=== PATIENT | female | born 1965 | race African-American/Black ===

== ENCOUNTER 2018-04-26 21:34 | Emergency (ER) | payer OTHER, SELFPAY ==
[~2018-04-26] VITALS: Ht 167.6 cm; Wt 56.7 kg
[~2018-04-26 21:34] MED LIST: HYDROCHLOROTHIA25 MG ORAL; NKM; ROBITUSSIN LON118 ML PO
[2018-04-26 21:45] VITALS: BP 194/134
[2018-04-26] MEDS ORDERED: PRINIVIL10 MG ORAL (21:48)
[2018-04-26] MEDS ORDERED: METOPROLOL TART25 MG ORAL (21:48)
[2018-04-26] MEDS ORDERED: NORVASC10 MG ORAL (21:48)
--- NOTE | 2018-04-26 22:03 | Emergency Room Report ---
History of Present Illness General Chief Complaint: Nosebleed Source: Patient Present Illness HPI Is a 53-year-old female with a history of high blood pressure. She presents with chief complaint of nosebleed. This been intermittent for last 2 days. So on the right side. She's had bleeding is profuse. She is passing heavy clots. She's been out of her blood pressure medication for last 3 days per she's been working a lot and has not seen her doctor for refill. She is on 3 different medication. Denies any nausea vomiting. Denies any fever or chills. Denies any headache. No chest pain. Allergies: Coded Allergies: No Known Allergies (Unverified , 05/11/13) Patient History Past Medical History: see triage record, old chart reviewed, HTN Past Surgical History: other Pertinent Family History: none Social History: Reports: smoking; Denies: alcohol use, drug use Last Menstrual Period: 2011 Now: No : 3 Para: 3 Immunizations: other Reviewed Nursing Documentation: PMH: Agreed; PSxH: Agreed Nursing Documentation-PMH Past Medical History: No History, Except For Hx Hypertension: Yes Review of Systems Eye: Denies: eye pain, blurred vision ENT: Denies: ear pain, nose congestion, throat swelling Respiratory: Denies: cough, shortness of breath Cardiovascular: Denies: chest pain, palpitations Gastrointestinal: Denies: abdominal pain, diarrhea, nausea, vomiting Musculoskeletal: Denies: back pain, joint pain Skin: Denies: rash Neurological: Denies: headache, numbness Endocrine: Denies: increased thirst, increased urine Hematologic/Lymphatic: Denies: easy bruising All Other Systems: negative except mentioned in HPI Physical Exam Vital Signs Date Time Temp Pulse Resp B/P (MAP) Pulse Ox O2 Delivery O2 Flow Rate FiO2 04/26/18 21:40 98.4 95 16 204/137 97 Room Air blood pressure elevated Sp02 EP Interpretation: reviewed, normal General Appearance: well appearing, no apparent distress, alert Head: normocephalic, atraumatic Eyes: bilateral eye PERRL, bilateral eye EOMI ENT: hearing grossly normal, normal pharynx, other - Nose: No obvious source of bleeding Neck: full range of motion, supple, no meningismus Respiratory: chest non-tender, lungs clear, normal breath sounds Cardiovascular #1: regular rate, rhythm, no murmur Gastrointestinal: normal bowel sounds, non tender, no mass, no organomegaly, no bruit, non-distended Musculoskeletal: back normal, gait/station normal, normal range of motion Psychiatric: mood/affect normal Skin: warm/dry Procedures Additional Procedure Procedure Narrative Procedure: Epistaxis control Indication: Epistaxis Discussion: I place a 5.5 cm Rhino Rocket to the nares. Bleeding controlled. Patient tolerated procedure without any problem. Medical Decision Making Diagnostic Impression: Primary Impression: Epistaxis Additional Impression: Hypertension Qualified Codes: I10 - Essential (primary) hypertension ER Course Patient presents with epistaxis. Initially there was no bleeding but bleeding recur. There was brisk bleeding from the right nares. There was control with Rhino Rocket. Blood pressure improved with medication. We'll discharge home. Lab Results Impression labs unremarkable Last Vital Signs Date Time Temp Pulse Resp B/P (MAP) Pulse Ox O2 Delivery O2 Flow Rate FiO2 04/26/18 21:40 98.4 95 16 204/137 97 Room Air Status: improved Disposition: HOME, SELF-CARE Condition: Stable Scripts Metoprolol Tartrate* (METOPROLOL TARTRATE*) 25 Mg Tablet 25 MG ORAL EVERY 12 HOURS, #60 TAB Prov: Fernandez Red MD 04/27/18 Lisinopril* (LISINOPRIL*) 10 Mg Tablet 10 MG ORAL DAILY, #30 TAB Prov: Fernandez Red MD 04/27/18 Amlodipine Besylate (Norvasc) 10 Mg Tablet 10 MG ORAL DAILY, #30 TAB Prov: Fernandez Red MD 04/27/18 Cephalexin* (KEFLEX*) 500 Mg Capsule 500 MG ORAL TID, #21 CAP Prov: Fernandez Red MD 04/27/18 Patient Instructions: Nosebleed, Aakf-iq-Dopy Additional Instructions: Follow-up with your DrHemant in 4-5 days. You will need a referral to see ENT doctor. Return if symptom worsen. Fernandez Red MD Apr 26, 2018 22:03
[2018-04-26 22:21] LABS: BASOPHILS % (AUTO) 1.1 % (0.0-2.0); EOSINOPHILS % (AUTO) 4.1 % (0.0-3.0); HEMATOCRIT 43.4 % (37.0-47.0); HEMOGLOBIN 14.5 G/DL (12.0-16.0); LYMPHOCYTES % (AUTO) 20.7 % (20.0-45.0); MEAN CORPUSCULAR VOLUME 88 FL (80-99); MONOCYTES % (AUTO) 6.3 % (1.0-10.0); NEUTROPHILS % (AUTO) 67.6 % (45.0-75.0); PLATELET COUNT 248 K/UL (150-450); RED BLOOD COUNT 4.91 M/UL (4.20-5.40); RED CELL DISTRIBUTION WIDTH 11.6 % (11.6-14.8); WHITE BLOOD COUNT 9.5 K/UL (4.8-10.8)
[2018-04-26 22:29] LABS: ANION GAP 9 mmol/L (5-15); BLOOD UREA NITROGEN 14 mg/dL (7-18); CALCIUM 9.1 MG/DL (8.5-10.1); CARBON DIOXIDE 27 MMOL/L (21-32); CHLORIDE 104 MMOL/L (98-107); CREATININE 0.8 MG/DL (0.55-1.30); POTASSIUM 3.2 MMOL/L (3.5-5.1); SODIUM 140 MMOL/L (136-145)
[2018-04-26 22:39] LABS: APPEARANCE,URINE CLEAR; BILIRUBIN, URINE NEGATIVE (NEGATIVE); GLUCOSE, URINE (UA) NEGATIVE (NEGATIVE); KETONES,URINE 1+ (NEGATIVE); LEUKOCYTE ESTERASE ,URINE 1+ (NEGATIVE); NITRITE,URINE NEGATIVE (NEGATIVE); PH,URINE 6 (4.5-8.0); PROTEIN,URINE 2+ (NEGATIVE); UROBILINOGEN,URINE 1 MG/DL (0.0-1.0)
[2018-04-26 22:41] LABS: COLOR,URINE YELLOW
[2018-04-26 22:55] VITALS: BP 152/91
[2018-04-26] MEDS ORDERED: Lisinopril 10mg tab ONE (23:57)
[2018-04-27] MEDS ORDERED: Lisinopril 10mg tab ORAL ONE
[2018-04-27] MEDS ORDERED: CEPHALEXIN500 MG ORAL (00:11)
[2018-04-27] MEDS ORDERED: METOPROLOL TART25 MG ORAL (00:11)
[2018-04-27] MEDS ORDERED: NORVASC10 MG ORAL (00:11)
[2018-04-27] MEDS ORDERED: LISINOPRIL10 MG ORAL (00:11)
[2018-04-27 00:20] VITALS: BP 154/98
== END 2018-04-27 00:20 | disposition home or self-care (01) ==
LOC: EMR 21:47
DX: R04.0 Epistaxis (principal); I10 Essential (primary) hypertension
CPT/HCPCS: 30901; 36415; 80048; 80307; 81001; 85025; 99284; J0360

== ENCOUNTER 2018-04-30 09:09 | Emergency (ER) | payer OTHER ==
[~2018-04-30] VITALS: Ht 167.6 cm; Wt 56.7 kg
[~2018-04-30 09:09] MED LIST changes: +CEPHALEXIN500 MG ORAL; +LISINOPRIL10 MG ORAL; +METOPROLOL TART25 MG ORAL; +NORVASC10 MG ORAL; +PRINIVIL10 MG ORAL
--- NOTE | 2018-04-30 09:22 | NUR ---
pt came from home to ED with balloon cath removal of the right nare due to epitaxis. pt was at [facility] [place] 04/26/18 for balloon cath insertion. pt denies pain. Addendum: 04/30/18 at 1019 by PDELEON ED Nurse Note: pt is ao x 4, pt is self ambulatory came from home to ED with balloon cath removal of the right nare due to epitaxis. pt was at [facility] [place] 04/26/18 for balloon cath insertion. pt denies pain. skin intact. vss at the moment. will continue to monitor and await further orders.
[2018-04-30 09:26] VITALS: BP 174/110
--- NOTE | 2018-04-30 10:19 | Emergency Room Report ---
History of Present Illness General Chief Complaint: Nosebleed Source: Patient Present Illness HPI This patient states that she had a nosebleed last week. She had multiple recurrences of this nosebleed and a Rhino Rocket was placed 4 days ago. She is on antibiotics and has the Rhino Rocket in place. She reports she would like the Rhino Rocket removed. She has had no bleeding, pain, fever and otherwise is doing well. Allergies: Coded Allergies: No Known Allergies (Unverified , 05/11/13) Patient History Past Medical History: see triage record, HTN Social History: Reports: smoking; Denies: alcohol use, drug use Now: No Reviewed Nursing Documentation: PMH: Agreed; PSxH: Agreed Nursing Documentation-PMH Past Medical History: No History, Except For Hx Hypertension: Yes Review of Systems All Other Systems: negative except mentioned in HPI Physical Exam Vital Signs Date Time Temp Pulse Resp B/P (MAP) Pulse Ox O2 Delivery O2 Flow Rate FiO2 04/30/18 09:16 98.2 72 18 174/110 99 Room Air Sp02 EP Interpretation: reviewed, normal General Appearance: no apparent distress, alert, GCS 15, non-toxic Head: normocephalic, atraumatic Eyes: bilateral eye normal inspection, bilateral eye PERRL ENT: normal ENT inspection - No bleeding. Rhino Rocket in place., hearing grossly normal, normal pharynx, no angioedema, normal voice Neck: full range of motion, supple/symm/no masses Respiratory: no respiratory distress, no retraction, no accessory muscle use, speaking full sentences Rectal: deferred Musculoskeletal: back normal, gait/station normal, normal range of motion, non- tender Neurologic: alert, oriented x3, responsive, motor strength/tone normal, sensory intact, speech normal Psychiatric: judgement/insight normal, memory normal, mood/affect normal, no suicidal/homicidal ideation Skin: normal color, no rash, warm/dry, well hydrated Medical Decision Making Diagnostic Impression: Primary Impression: Epistaxis ER Course The patient has a Rhino Rocket in place. There is no evidence of ongoing bleeding. The patient wants the Rhino Rocket removed. The Rhino Rocket was removed with out complication or incident. There was no evidence of recurrence of the bleeding. The patient was educated it could rebleed and that she should avoid trauma to her nose or any type of substances in her nose other than nasal saline or Afrin. He was also educated that she may need to follow-up with an law researcher. She indicated understanding and intention to do so. Last Vital Signs Date Time Temp Pulse Resp B/P (MAP) Pulse Ox O2 Delivery O2 Flow Rate FiO2 04/30/18 09:26 98.2 72 18 174/110 99 Room Air Status: improved Disposition: HOME, SELF-CARE Condition: Improved Referrals: LUIS SCHAFFER,REFERRING (PCP) Patient Instructions: Noseangela, [id number] Claribel Wilkes DO Apr 30, 2018 10:19
[2018-04-30] MEDS ORDERED: AFRIN NASAL SPR30 ML NASAL (10:20)
[2018-04-30] MEDS ORDERED: SALINE NASAL SP45 ML NASAL (10:20)
[2018-04-30 10:31] VITALS: BP 174/110
--- NOTE | 2018-04-30 10:35 | NUR ---
ED Nurse Note: Pt is DC per MD order. pt has left with all belongings. pt as given dc and prescription intrusctions. patient verbalized understanding. pt vss and has been reported to MD. pt is able to abmulate with steady gait. ID band removed prior to Dc.
== END 2018-04-30 10:31 | disposition home or self-care (01) ==
LOC: EMR 10:05
DX: R04.0 Epistaxis (principal); I10 Essential (primary) hypertension
CPT/HCPCS: 99283